=== PATIENT | male | born 1970 | race Two or more races ===

== ENCOUNTER 2019-01-02 09:32 | Emergency (ER) | payer BC ==
[2019-01-02] MEDS ORDERED: KETOROLAC 30 MG/1 ML SDV IVP ONE (09:44)
[2019-01-02] MEDS ORDERED: METOCLOPRAMIDE 10 MG/2 ML VIAL IVP ONE (09:44)
[2019-01-02] MEDS ORDERED: NS 1,000 ML IV ONE ×2 (09:44)
--- NOTE | 2019-01-02 09:44 | EDPHY ---
H & P Stated Complaint: neck and back pain for 1 week Time Seen by Provider: 01/02/19 09:38 HPI/ROS: HPI: This is a 48-year-old male who presents with Chief Complaint: Posterior neck and lower back pain, generalized achiness Location: Posterior neck, lower back, body Quality: Achiness Duration: 1 week Signs and Symptoms: no fever, no nausea, no vomiting, no hematemesis, no blood in stool, no abdominal bloating, no diarrhea, no back pain, no urinary symptoms , no testicular/groin pain, no indigestion, no chest pain, no shortness of breath Timing: Daily Severity: Moderate Context: Patient reports that he is currently under the care of Gastroenterology for inability to swallow certain foods with decreased oral intake for the last several months. Last week he had an EGD and he is waiting for the test results. He is taking Protonix daily with no improvement in his symptoms. He reports that he is avoiding spicy and citrus foods and try and eat a bland diet. Reports that he has decreased appetite and decreased oral intake. Last week he was seen at [place] emergency room and diagnosed with a viral syndrome and mild dehydration. He tested negative for influenza a and B at that time. He reports that he feels soreness and bilateral posterior neck and lower back for the last 1 week. He reports that his symptoms have not improved. He was unable to go to work today due to his "achiness." Denies any fevers, weight loss, night sweats. He reports that he is able to swallow but feels like food "gets stuck in the middle of his throat."Patient has no primary care provider. Modifying Factors: Protonix Comment: ROS: A comprehensive 10 system review of systems is otherwise negative aside from elements mentioned in the history of present illness. MEDICAL/SURGICAL/SOCIAL HISTORY: Medical history: Generally healthy. Does not take any regular medications. Surgical history: Denies Social history: Family history noncontributory. CONSTITUTIONAL: Ill but nontoxic-appearing middle-aged male, awake and alert, no obvious distress HEENT: Atraumatic and normocephalic, PERRL, EOMI. Nares patent; no rhinorrhea; no nasal mucosal edema. Tympanic membranes clear. Oropharynx clear, no exudate and moist pink mucosa. Airway patent. No lymphadenopathy. No meningismus. Cardiovascular: Normal S1/S2, tachycardia, regular rhythm, without murmur rub or gallop. PULMONARY/CHEST: Symmetrical and nontender. Clear to auscultation bilaterally. Good air movement. No accessory muscle usage. ABDOMEN: Soft, nondistended, nontender, no rebound, no guarding, no peritoneal signs, no masses or organomegaly. No CVAT. EXTREMITIES: 2/2 pulses, strength 5/5, no deformities, no clubbing, no cyanosis or edema. NEUROLOGICAL: no focal neuro deficits. GCS 15. Speech clear. SKIN: Warm and dry, no erythema. no rash. Good capillary refill. Source: Patient Exam Limitations: No limitations - Medical/Surgical History Hx Asthma: No Hx Chronic Respiratory Disease: No Hx Diabetes: No Hx Cardiac Disease: Yes Hx Renal Disease: No Hx Cirrhosis: No Hx Alcoholism: No Hx HIV/AIDS: No Hx Splenectomy or Spleen Trauma: No Other PMH: NC with 4 stents - Social History Smoking Status: Never smoked Constitutional: Initial Vital Signs Temperature (C) 36.9 C 01/02/19 09:35 Heart Rate 122 H 01/02/19 09:35 Respiratory Rate 18 01/02/19 09:35 Blood Pressure 93/62 L 01/02/19 09:35 O2 Sat (%) 94 01/02/19 09:35 O2 Delivery Mode Room Air Allergies/Adverse Reactions: Penicillins Allergy (Verified 01/02/19 09:34) Home Medications: Medication Instructions Recorded NK [No Known Home Meds] 01/02/19 Medical Decision Making ED Course/Re-evaluation: Vital signs reviewed and show tachycardia. IV access, laboratory studies ordered Given 2 L normal saline, IV Reglan 10 mg, IV Benadryl 50 mg, IV Toradol 30 mg 1200: Labs reviewed. WBC 17 K with left shift, creatinine 1.0, CK 74. No signs of anemia/platelet dysfunction/ANGELA/elevated LFTs/electrolyte imbalance/ pancreatitis/mono. 1230: Reassessed patient who reports relief of symptoms. Asking to be discharged home. Urinalysis shows renetta color, 3+ protein but no signs of blood or infection. Case management consult to establish primary care follow-up including following leukocytosis. No signs of meningitis/rhabdomyolysis/dehydration/airway compromise. abdomen is soft and nontender. Drinking fluids without difficulty. Work excuse provided per request. Vital signs stable at discharge and tachycardia resolved. This patient was seen under the supervision of my primary supervising physician. I evaluated care for this patient with attending. Differential Diagnosis: Abdominal pain including but not limited to appendicitis, cholecystitis, gastritis and urinary tract infection. - Data Points Laboratory Results: Laboratory Results 01/02/19 09:47 01/02/19 09:47 01/02/19 01/02/19 01/02/19 11:10 09:47 09:47 WBC RBC Hgb Hct MCV MCH MCHC RDW Plt Count MPV Neut % (Auto) Lymph % (Auto) [place] % (Auto) Eos % (Auto) Baso % (Auto) Nucleat RBC Rel Count Absolute Neuts (auto) Absolute Lymphs (auto) Absolute Monos (auto) Absolute Eos (auto) Absolute Basos (auto) Absolute Nucleated RBC Immature Gran % Immature Gran # Sodium 138 mEq/L mEq/L (135-145) Potassium 4.7 mEq/L mEq/L (3.5-5.2) Chloride 89 mEq/L L mEq/L (97-110) Carbon Dioxide 24 mEq/l mEq/l (22-31) Anion Gap 25 mEq/L H mEq/L (6-14) BUN 24 mg/dL H mg/dL (7-23) Creatinine 1.0 mg/dL mg/dL (0.7-1.3) Estimated GFR > 60 Glucose 143 mg/dL H mg/dL (70-100) Calcium 9.3 mg/dL mg/dL (8.5-10.4) Total Bilirubin 1.0 mg/dL mg/dL (0.1-1.4) Conjugated Bilirubin 0.3 mg/dL mg/dL (0.0-0.5) Unconjugated Bilirubin 0.7 mg/dL mg/dL (0.0-1.1) AST 21 IU/L IU/L (17-59) ALT 26 IU/L IU/L (21-72) Alkaline Phosphatase 91 IU/L IU/L (38-126) Creatine Kinase 74 IU/L IU/L (0-224) Total Protein 7.5 g/dL g/dL (6.3-8.2) Albumin 3.9 g/dL g/dL (3.5-5.0) Lipase 167 IU/L IU/L (23-300) Urine Color RENETTA Urine Appearance CLEAR Urine pH 7.0 (5.0-7.5) Ur Specific [place] 1.025 (1.002-1.030) Urine Protein 3+ H (NEGATIVE) Urine Ketones NEGATIVE (NEGATIVE) Urine Blood NEGATIVE (NEGATIVE) Urine Nitrate NEGATIVE (NEGATIVE) Urine Bilirubin NEGATIVE (NEGATIVE) Urine Urobilinogen 4.0 EU H EU (0.2-1.0) Ur Leukocyte Esterase NEGATIVE (NEGATIVE) Urine RBC 1-3 /hpf /hpf (0-3) Urine WBC 1-3 /hpf /hpf (0-3) Ur Epithelial Cells NONE SEEN /lpf /lpf (NONE-1+) Urine Mucus TRACE /lpf /lpf (NONE-1+) Urine Sperm PRESENT /hpf /hpf (NONE SEEN) Urine Glucose NEGATIVE (NEGATIVE) Monoscreen NEGATIVE (NEGATIVE) 01/02/19 09:47 WBC 16.90 10^3/uL H 10^3/uL (3.80-9.50) RBC 6.01 10^6/uL 10^6/uL (4.40-6.38) Hgb 16.7 g/dL g/dL (13.7-17.5) Hct 47.7 % % (40.0-51.0) MCV 79.4 fL L fL (81.5-99.8) MCH 27.8 pg L pg (27.9-34.1) MCHC 35.0 g/dL g/dL (32.4-36.7) RDW 12.7 % % (11.5-15.2) Plt Count 315 10^3/uL 10^3/uL (150-400) MPV 8.7 fL fL (8.7-11.7) Neut % (Auto) 91.1 % H % (39.3-74.2) Lymph % (Auto) 5.4 % L % (15.0-45.0) [place] % (Auto) 2.6 % L % (4.5-13.0) Eos % (Auto) 0.3 % L % (0.6-7.6) Baso % (Auto) 0.2 % L % (0.3-1.7) Nucleat RBC Rel Count 0.0 % % (0.0-0.2) Absolute Neuts (auto) 15.40 10^3/uL H 10^3/uL (1.70-6.50) Absolute Lymphs (auto) 0.92 10^3/uL L 10^3/uL (1.00-3.00) Absolute Monos (auto) 0.44 10^3/uL 10^3/uL (0.30-0.80) Absolute Eos (auto) 0.05 10^3/uL 10^3/uL (0.03-0.40) Absolute Basos (auto) 0.03 10^3/uL 10^3/uL (0.02-0.10) Absolute Nucleated RBC 0.00 10^3/uL 10^3/uL (0-0.01) Immature Gran % 0.4 % % (0.0-1.1) Immature Gran # 0.06 10^3/uL 10^3/uL (0.00-0.10) Sodium Potassium Chloride Carbon Dioxide Anion Gap BUN Creatinine Estimated GFR Glucose Calcium Total Bilirubin Conjugated Bilirubin Unconjugated Bilirubin AST ALT Alkaline Phosphatase Creatine Kinase Total Protein Albumin Lipase Urine Color Urine Appearance Urine pH Ur Specific [place] Urine Protein Urine [place]ones Urine Blood Urine Nitrate Urine Bilirubin Urine Urobilinogen Ur Leukocyte Esterase Urine RBC Urine WBC Ur Epithelial Cells Urine Mucus Urine Sperm Urine Glucose Monoscreen Medications Given: Discontinued Medications Diphenhydramine HCl (Benadryl Injection) 50 mg IVP EDNOW ONE Stop: 01/02/19 09:46 Last Admin: 01/02/19 09:51 Dose: 50 mg Sodium Chloride (Ns) 1,000 mls @ 0 mls/hr IV EDNOW ONE; Wide Open PRN Reason: Protocol Stop: 01/02/19 09:45 Last Admin: 01/02/19 09:51 Dose: 1,000 mls Sodium Chloride (Ns) 1,000 mls @ 0 mls/hr IV EDNOW ONE; Wide Open PRN Reason: Protocol Stop: 01/02/19 09:45 Last Admin: 01/02/19 09:54 Dose: 1,000 mls Ketorolac Tromethamine (Toradol) 30 mg IVP EDNOW ONE Stop: 01/02/19 09:45 Last Admin: 01/02/19 09:51 Dose: 30 mg Metoclopramide HCl (Reglan Injection) 10 mg IVP EDNOW ONE Stop: 01/02/19 09:45 Last Admin: 01/02/19 09:51 Dose: 10 mg Departure - Departure Disposition: Home, Routine, Self-Care Clinical Impression: Generalized body aches, Food sticks on swallowing Condition: Good Instructions: Gastroparesis (ED) Additional Instructions: Rest as much as possible until you are feeling better. Consume a minimum of 8-10 glasses of water or electrolyte fluid replacement drinks that include Gatorade, Powerade, Pedialyte. Eat a bland diet for the next 48 hours and then slowly advance as tolerated. Take [id number] Nexium daily. Follow-up with primary care provider in the next 5-7 days. Keep follow-up appointment with Gastroenterology for evaluation of swallowing issues. Referrals: Bladimir Em MD [[facility] [place] [facility] Provider] - As per Instructions Stand Alone Forms: Work Excuse
[2019-01-02 09:58] LABS: PLATELET COUNT 315 10^3/uL (150-400)
[2019-01-02 10:14] LABS: CREATINE KINASE 74 IU/L (0-224)
[2019-01-02 12:36] VITALS: BP 107/78
--- NOTE | 2019-01-02 14:50 | ASMTCMCOM ---
CM Note CM Note Notes: CM asjed to meet with patient regarding establishing follow up/primary care provider. Chart reviewed. Patient reports that he has not had a PCP for a long time but has been insured with his current coverage for over a year and a half. Patient has [employer] insurance. Patient reports that he is being seen by gastroenterology for his current GI issues. I explained the process and importance of establishing a PCP for prevention, annual health exams (usually with no co-pay, as well as coordination of care and referrals. Patient verbalizes understanding of process to contact insurance company and/or website to find an iin-network provider and schedule ED follow up. I have provided patient with ED CM contact number and and suggested that he call us once he has made a follow up appointment (establish a PCP) so we can send ED records from todays visit. CM available prn Date Signed: 01/02/2019 01:22 PM Electronically Signed By:Ernestine Ac RN
--- NOTE | 2019-01-06 15:29 | ASMTCMCOM ---
CM Note CM Note Notes: Received a voicemail from the pt yesterday. Pt requesting that CM fax over the ED report, etc. to his PCP Dr Muro at [facility] (o:[phone], fax: [phone]). This CM called [facility]; they said pt has been established with them since 2014. Pt has already followed up since his ED visit on 01/02/19 but also has another appt scheduled in January. CM faxed over the ED Provider Report. CM available for further assistance. Date Signed: 01/06/2019 03:29 PM Electronically Signed By:Diandra Rodriguez RN
== END 2019-01-02 12:36 | disposition home or self-care (01) ==
DX: M79.10 Myalgia, unspecified site (principal); R13.10 Dysphagia, unspecified; E86.9 Volume depletion, unspecified
CPT/HCPCS: 96374; J1200; J1885; J2765